=== PATIENT | female | born 1955 | race Caucasian/White ===

== ENCOUNTER → 2025-01-19 09:50 | Outpatient (BNVA) | payer MEDICARE, SELFPAY | PROVIDERS: PCP Student in an Organized Health Care Education/Training Program; Referring Provider Family Medicine; Visit Provider Surgery | DX: Z12.11 Encounter for screening for malignant neoplasm of colon (principal) | CPT/HCPCS: S0285 ==

== ENCOUNTER 2025-02-21 08:54 | Day surgery (SDC) | payer MEDICARE, SELFPAY ==
--- NOTE | 2025-02-20 14:51 | W.PREOPHP ---
Assessment and Plan Assessment and plan (1) Irregular bowel habits: Status: Acute Assessment and plan: We reviewed the plan for colonoscopy again today, and Angie had the chance to ask any new questions. We can proceed with colonoscopy as planned. History of Present Illness History of Present Illness Chief Complaint: diarrhea Narrative: Angie is referred for a colonoscopy. Evangelista is 69 years old, she has been in her usual state of health up to about 1-1/2 years ago. At that time, she noticed a progressive onset of loosening stools and diarrhea. This has been pretty consistent over the past year. She often times has somewhere between 4 and 6 bowel movements each day. Often times, she has fecal urgency. She denies any melena or hematochezia. Stools are quite watery, and she is able to decrease the frequency of them with Imodium from time to time. She has not noticed any particular food products that cause exacerbation of the symptoms. She denies any family history of colorectal cancers. Her last colonoscopy was in 2017, and is reported as normal. Past surgical history includes tubal ligation. Since her last visit, there have been no major changes with regards to the interval history. PFSH All Active Problems Irregular bowel habits (Acute) Snoring (Acute) Sensorineural hearing loss, unilateral, left ear, with unrestricted hearing on the contralateral side (Acute) Medical History Nasal septal perforation History of deviated nasal septum HSV infection Osteopenia Insomnia Seasonal allergies Numbness and tingling sensation of skin Tinnitus, bilateral Hematuria, microscopic Gout, unspecified Onychomycosis Polydipsia Herpes simplex with unspecified complication Surgical History History of discectomy L5-S1 microsurgical History of nasal septoplasty 2006 tubal ligation ovarian cyst resection lymph node resection Colonoscopy - [facility] (04/28/17) Family History (Updated 09/19/22 @ 10:49 by Melissa Hanley) Father Hypertension Mother Diabetes Hypertension Heart disease Dementia Sister Breast cancer Social History (Updated 09/19/22 @ 10:49 by Melissa Hanley) Smoking/Tobacco Use Status: Never Smoking risk assessment performed?: Yes Alcohol Intake: current Alcohol Intake frequency: a few times a week Alcohol type: hard liquor Drug use: Never Substance use type: does not use Housing: house Do you feel safe at home: Yes Do you feel safe in your relationship?: Yes Meds Allergies and Home Medications Allergies Allergy/AdvReac Type Severity Reaction Status Date / Time seasonal Allergy Unknown Unknown Uncoded 02/21/25 09:13 Home Medications ?Medication ?Instructions ?Recorded ?Confirmed ?Type cholecalciferol (vitamin D3) 50 50 mcg PO DAILY 09/19/22 02/21/25 History mcg (2,000 unit) capsule cyanocobalamin (vitamin B-12) 2,500 mcg PO DIRECTED 09/19/22 02/20/25 History 2,500 mcg tablet diphenhydramine HCl 25 mg tablet 25 mg PO QHS PRN allergy symptoms 09/19/22 02/21/25 History (Benadryl Allergy) loratadine 10 mg tablet (Claritin) 10 mg PO DAILY 09/19/22 02/21/25 History zolpidem 5 mg tablet (Ambien) 5 mg PO QHS PRN 09/19/22 02/21/25 History albuterol sulfate 90 mcg/actuation 2 puff inhalation Q6H PRN 11/17/24 02/21/25 History aerosol inhaler calcium carbonate 1,200 mg PO DAILY 11/17/24 02/20/25 History estradiol 0.01% (0.1 mg/gram) 1 g vaginal QWEEK 11/17/24 02/21/25 History vaginal cream ferrous sulfate 325 mg (65 mg 325 mg PO DAILY 02/20/25 02/20/25 History iron) tablet (Feosol) Exam Const General: cooperative, healthy appearing and not in acute distress Neck Neck: normal visual inspection, no lymphadenopathy and supple Resp Effort & Inspection: normal respiratory effort Auscultation: clear to auscultation bilaterally Cardio Jugular venous pressure: no JVD Rate: regular rate Rhythm: regular rhythm Heart Sounds: S1 normal and S2 normal GI Inspection: normal to inspection Palpation: soft, no guarding, no hernias and nontender Percussion: normal to percussion Auscultation: normal bowel sounds Neuro General: patient alert, patient awake and patient oriented x3 Psych Appearance: grossly normal
--- NOTE | 2025-02-20 14:53 | W.COLOREPORT ---
Date of service: 02/21/25 Time of Service: 11:53 Colonoscopy Report Date of procedure: 02/21/25 Pre-op diagnosis general: diarrhea Post-op diagnosis procedure note: other (Diverticulosis, colon polyps) Procedure: Colonoscopy with biopsies and polypectomy Surgeon: Gatito Barton Anesthesia Type: General:No Airway Estimated blood loss (mL): 10 Pathology: other (Nondirected biopsies to rule out collagenous colitis, 0.5 cm flat polyp at 80 cm, 0.25 cm flat polyp at 30 cm) Complications: None Disposition: same day Indications: Angie is a 69 year old woman who needs a diagnostic colonoscopy Prep: Miralax/Dulcolax Procedure Start Time: 11:21 Procedure End Time: 11:44 Retraction Time: 16 Findings: Normal-appearing colonic mucosa, occasional sigmoid diverticula, 0.25 cm flat polyp at 30 cm, 0.5 cm flat polyp at 80 cm Procedure Description: After the induction of anesthesia, and with the patient in left lateral decubitus position, I began by performing an external anorectal exam.? Perineum and skin were normal, as was the anal verge.? There was no evidence of external hemorrhoids.? Next, I performed a digital rectal exam.? I did not appreciate any abnormal findings.? Next, I advanced a colonoscope into the rectal vault.? I performed retroflexion.? This appeared normal. There is no evidence of any ulcerative colitis.? Using irrigation, I then advanced the colonoscope beyond the rectal folds and into the sigmoid colon before advancing towards the cecum.? The quality of the prep was excellent.? The scope was noted to be in the cecum by identification of the ileocecal valve and appendiceal orifice.? I then began withdrawing the colonoscope using repeated irrigation as necessary for full evaluation of the colonic mucosa. ?I did begin with some random biopsies along the ascending colon. These were performed with cold forceps in an effort to rule out collagenous colitis. Around 80 cm from the anal verge was a 0.5 cm mostly flat polyp. This was removed in piecemeal with cold forceps with minimal bleeding. I continued withdrawing the colonoscope, again taking some nondirected biopsies using cold forceps. Around 30 cm from the anal verge was another polyp. This was about 0.25 centimeters and flat. This was removed with cold forceps without issues. There is a little bit of narrow mouth diverticulosis within the sigmoid segment, although it is quite infrequent. Once the scope was withdrawn to the level of the rectum, great care was taken to examine portions of the rectal folds.? Finally, the scope was withdrawn and the patient was brought to the same-day surgery recovery unit as the anesthetic wore off. ?The findings and instructions were shared with the patient prior to discharge. Superior Bowel Prep Superior Bowel Prep Right Colon: 3 Left Colon: 3 Transverse Colon: 3 Total Score: 9
--- NOTE | 2025-02-20 14:54 | PDOC.DSDIS_ITS ---
Date of service: 02/21/25 Discharge Plan Disposition Patient Disposition: Home Condition: Good Discharge Details Reason For Visit: colonoscopy Attending Provider: Gatito Barton Primary Care Provider: Amaya Roach Home Meds and New Rx's Prescriptions: Continued cholecalciferol (vitamin D3) 50 mcg (2,000 unit) capsule 50 mcg PO DAILY zolpidem [Ambien] 5 mg tablet 5 mg PO QHS PRN Patient Comments: rarely using, and when uses it, takes half a tab cyanocobalamin (vitamin B-12) 2,500 mcg tablet 2,500 mcg PO DIRECTED loratadine [Claritin] 10 mg tablet 10 mg PO DAILY diphenhydramine HCl [Benadryl Allergy] 25 mg tablet 25 mg PO QHS PRN (Reason: allergy symptoms) calcium carbonate 600 mg calcium (1,500 mg) tablet 1,200 mg PO DAILY albuterol sulfate 90 mcg/actuation HFA aerosol inhaler 2 puff inhalation Q6H PRN estradiol 0.01 % (0.1 mg/gram) cream 1 g vaginal QWEEK ferrous sulfate [Feosol] 325 mg (65 mg iron) tablet 325 mg PO DAILY Discontinued bisacodyl [Dulcolax (bisacodyl)] 5 mg tablet,delayed release (DR/EC) 5 mg PO ONCE Qty: 4 0RF Rx Instructions: take per colonoscopy instructions polyethylene glycol 3350 17 gram/dose powder 238 g PO ONCE Qty: 238 0RF Rx Instructions: take per colonoscopy instructions Discharge Instructions Instructions: Colon polyps, Diverticulosis Additional Instructions: Angie was good seeing you today, and I hope you feel well after the procedure. Things went very smoothly. Your prep was excellent, and we could see everything fine. I do not see any signs of ulcerative colitis, Crohn's disease, or any other forms of active inflammatory bowel disease. In fact, ove rwhelming majority of the mucosa or lining of the colon looks totally normal. As we discussed beforehand, I did do some nondirected biopsies all along the length of your colon to see if that sheds any light on the change in your stools. Incidentally, I also found 2 polyps today. These were small, and I do not think they are anything at all to worry about. I removed these, and I will send them off to the pathologist for their review. Colon polyps come in different varieties, and we use the nature of the polyp to help guide the timing of future screening colonoscopies. If you need anything, or have any questions at all, please do not hesitate to ask, otherwise my office will be in touch once of the biopsy results are all available. 1. If tolerated, consume a soft, low fiber diet for 1-2 days. 2[address] Do not drive, drink alcohol, operate machinery, make critical decisions, or do activities that require coordination or balance for 24 hours. 3. Because air was put into your colon during the procedure, expelling air from your rectum (passing gas or farting) is normal. 4. You may not have a bowel movement for 1-3 days because of the colonoscopy prep. This is normal. 5. Go directly to the emergency room if you notice any of the following: Develop chills (warm to touch), or if you have a thermometer and your temperature is above 101 Difficulty breathing or difficultly swallowing Persistent vomiting Severe abdominal pain, other than gas cramps Severe chest pain Black, tarry stools Any bleeding ? exceeding one tablespoon 6. Call your physician if the site where your intravenous was started becomes red, swollen, painful, and warm to touch. 7. Your physician has reviewed your pre-procedure medications. Please continue to take those medications as previously ordered. You will be given specific information/education regarding any changes to your medications before leaving. Stand Alone Forms: Anesthesia Discharge InstAurea Quinn (DSU) Activity:: Activity as Tolerated Diet:: As Tolerated Discharge Orders Discharge Orders: Discharge Order (Routine); Ordered 02/20/25 Ordered By: Gatito Barton DS: Diagnosis Discharge Diagnosis (1) Irregular bowel habits: Status: Acute Asessment and Plan: Follow-up on biopsy results and polypectomy report
[2025-02-21 09:08] VITALS: BP 147/73; PULSE 63; RESP 16; TEMP 36.5; O2SAT 99
[2025-02-21] MEDS: Lactated Ringers 1,000 ML 80 ML IV (09:26)
--- NOTE | 2025-02-21 09:44 | W.ANESPRE ---
General Info Date of Service Date Performed: 02/21/25 Height: 5 ft 3 in Weight: 63.9 kg Body Mass Index (BMI): 24.9 Surgical Procedure: Operation Date: 02/21/25 10:20 Proposed Procedure Side Surgeon mary Barton MD Meds Allergies and Home Medications Allergies Allergy/AdvReac Type Severity Reaction Status Date / Time seasonal Allergy Unknown Unknown Uncoded 02/21/25 09:13 Home Medication ?Medication ?Instructions ?Recorded cholecalciferol (vitamin D3) 50 50 mcg PO DAILY 09/19/22 mcg (2,000 unit) capsule cyanocobalamin (vitamin B-12) 2,500 mcg PO DIRECTED 09/19/22 2,500 mcg tablet diphenhydramine HCl 25 mg tablet 25 mg PO QHS PRN allergy symptoms 09/19/22 (Benadryl Allergy) loratadine 10 mg tablet (Claritin) 10 mg PO DAILY 09/19/22 zolpidem 5 mg tablet (Ambien) 5 mg PO QHS PRN 09/19/22 albuterol sulfate 90 mcg/actuation 2 puff inhalation Q6H PRN 11/17/24 aerosol inhaler calcium carbonate 1,200 mg PO DAILY 11/17/24 estradiol 0.01% (0.1 mg/gram) 1 g vaginal QWEEK 11/17/24 vaginal cream ferrous sulfate 325 mg (65 mg 325 mg PO DAILY 02/20/25 iron) tablet (Feosol) Current Visit Medications: Current Medications Generic Name Dose Route Start Last Admin Trade Name Freq PRN Reason Stop Dose Admin Ringer's Solution 1,000 mls @ 80 mls/hr 02/21/25 06:00 02/21/25 09:26 IV 02/21/25 23:59 80 mls/hr INFUSION FABIAN Administration IV Miscellaneous Supplies 1 each 02/21/25 06:00 Iv Access IV 02/21/25 23:59 DIRECTED FABIAN Ondansetron HCl 4 mg 02/20/25 14:54 Ondansetron 4 Mg/2 Ml Vial IVP 03/22/25 14:53 Q4H PRN PRN Nausea / Vomiting Sodium Chloride 0 ml 02/21/25 06:00 Normal Saline Flush 10 Ml Syr IV 02/21/25 23:59 PRN PRN Sodium Chloride 0 ml 02/21/25 06:00 Normal Saline 10 Ml Vial IJ 02/21/25 23:59 DIRECTED PRN Sterile Water 0 ml 02/21/25 06:00 Water,Injection,Sterile 10 Ml Vial IJ 02/21/25 23:59 DIRECTED PRN PFS Active Problems Active Problems: Problem Status Onset Code Irregular bowel habits Acute R19.8 Snoring Acute R06.83 Sensorineural hearing loss, unilateral, left ear, with unrestricted hearing on the contralateral side Acute H90.42 Medical History Medical History Nasal septal perforation History of deviated nasal septum HSV infection Osteopenia Insomnia Seasonal allergies Numbness and tingling sensation of skin Tinnitus, bilateral Hematuria, microscopic Gout, unspecified Onychomycosis Polydipsia Herpes simplex with unspecified complication Surgical History Surgical History History of discectomy L5-S1 microsurgical History of nasal septoplasty 2006 tubal ligation ovarian cyst resection lymph node resection Colonoscopy - [facility] (04/28/17) Tobacco Smoking/Tobacco Use Status: Never Alcohol Alcohol Intake: current Alcohol intake frequency: a few times a week Alcohol type: hard liquor Substance Use Substance use: Never Substance use type: does not use Vital Signs and Lab Results Vital Signs Most Recent Vital Signs in EMR: Most Recent Vital Signs Temp Pulse Resp BP Pulse Ox 36.5 C 63 16 147/73 H 99 02/21/25 09:08 02/21/25 09:08 02/21/25 09:08 02/21/25 09:08 02/21/25 09:08 Anesthesia Assessment and Plan Anesthesia History Personal History: No History of Anesthesia Complications Family History: No Family History of Anesthesia Complications Exercise Tolerance Exercise Tolerance: Metabolic Equivalents>4 Pertinent Negatives Pertinent Negatives: No Symptoms of GERD Cardiac & Pulmonary Exam Cardiac Exam: Normal S1/S2 Heart Sounds Pulmonary Exam: Clear Bilateral Breath Sounds Implantable Cardiac Device Does patient have a Pacemaker or an ICD?: No Airway Exam Known Difficult Airway: No Mallampati Class: 2 Mouth Opening: Normal (> 3cm) Thyromental Distance: Greater than 3 cm Neck Range of Motion: Full ROM Neck Circumference: Normal Teeth Condition: Normal Dentition ASA Classification ASA Score: ASA 2 Emergency Case?: No NPO Status NPO Status: NPO Clears >2 hours, Solids >8 hours Anesthesia Plan Resuscitation Status: Full Code Anesthesia Technique: General Anesthesia Airway Planned: Natural Airway Monitors Used: Standard Monitors
[2025-02-21 09:54] VITALS: BMI 24.9
--- NOTE | 2025-02-21 10:02 | ANES.PREOP_ITS ---
General Info Date of Service Date Performed: 02/21/25 Height: 5 ft 3 in Weight: 63.9 kg Body Mass Index (BMI): 24.9 Surgical Procedure: Operation Date: 02/21/25 10:20 Proposed Procedure Side Surgeon mary Barton MD Meds Allergies and Home Medications Allergies Allergy/AdvReac Type Severity Reaction Status Date / Time seasonal Allergy Unknown Unknown Uncoded 02/21/25 09:13 Home Medication ?Medication ?Instructions ?Recorded cholecalciferol (vitamin D3) 50 50 mcg PO DAILY mcg (2,000 unit) capsule cyanocobalamin (vitamin B-12) 2,500 mcg PO DIRECTED 09/19/22 2,500 mcg tablet diphenhydramine HCl 25 mg tablet 25 mg PO QHS PRN miguel rgy symptoms 09/19/22 (Benadryl Allergy) loratadine 10 mg tablet (Claritin) 10 mg PO DAILY 08/28 11/16 zolpidem 5 mg tablet (Ambien) 5 mg PO QHS PRN 09/19/22 albuterol sulfate 90 mcg/actuation 2 puff inhalation Q 6H PRN 11/17/24 aerosol inhaler calcium carbonate 1,200 mg PO DAILY 11/17/24 estradiol 0.01% (0.1 mg/gram) 1 g vaginal QWEEK vaginal cream ferrous sulfate 325 mg (65 mg 325 mg PO DAILY 02/20/25 iron) tablet (Feosol) Current Visit Medications: Current Medications Generic Name Dose Route Start Last Admin Trade Name Freq PRN Reason Stop Dose Admin Ringer's Solution 1,000 mls @ 80 mls/hr 02/21/25 06:00 02/21/25 09:26 IV 02/21/25 23:59 80 mls/hr INFUSION FABIAN Administration IV Miscellaneous Supplies 1 each 02/21/25 06:00 Iv Access IV 02/21/25 23:59 DIRECTED FABIAN Ondansetron HCl 4 mg 02/20/25 14:54 Ondansetron 4 Mg/2 Ml Vial IVP 03/22/25 14:53 Q4H PRN PRN Nausea / Vomiting Sodium Chloride 0 ml 02/21/25 06:00 Normal Saline Flush 10 Ml Syr IV 02/21/25 23:59 PRN PRN Sodium Chloride 0 ml 02/21/25 06:00 Normal Saline 10 Ml Vial IJ 02/21/25 23:59 DIRECTED PRN Sterile Water 0 ml 02/21/25 06:00 Water,Injection,Sterile 10 Ml Vial IJ 02/21/25 23:59 DIRECTED PRN PFSH Active Problems Active Problems: Problem Status Onset Code Irregular bowel habits Acute R19.8 Snoring Acute R06.83 Sensorineural hearing loss, unilateral, left ear, with unrestricted hearing on the contralateral side Acute H90.42 Medical History Medical History Nasal septal perforation History of deviated nasal septum HSV infection Osteopenia Insomnia Seasonal allergies Numbness and tingling sensation of skin Tinnitus, bilateral Hematuria, microscopic Gout, unspecified Onychomycosis Polydipsia Herpes simplex with unspecified complication Surgical History Surgical History History of discectomy L5-S1 microsurgical History of nasal septoplasty 2006 tubal ligation ovarian cyst resection lymph node resection Colonoscopy - [facility] (04/28/17) Tobacco Smoking/Tobacco Use Status: Never Alcohol Alcohol Intake: current Alcohol intake frequency: a few times a week Alcohol type: hard liquor Substance Use Substance use: Never Substance use type: does not use Vital Signs and Lab Results Vital Signs Most Recent Vital Signs in EMR: Most Recent Vital Signs Temp Pulse Resp BP Pulse Ox 36.5 C 63 16 147/73 H 99 02/21/25 09:08 02/21/25 09:08 02/21/25 09:08 02/21/25 09:08 02/21/25 09:08 Anesthesia Assessment and Plan Anesthesia History Personal History: No History of Anesthesia Complications Family History: No Family History of Anesthesia Complications Exercise Tolerance Exercise Tolerance: Metabolic Equivalents>4 Pertinent Negatives Pertinent Negatives: No Symptoms of GERD Cardiac & Pulmonary Exam Cardiac Exam: Normal S1/S2 Heart Sounds Pulmonary Exam: Clear Bilateral Breath Sounds Implantable Cardiac Device Does patient have a Pacemaker or an ICD?: No Airway Exam Known Difficult Airway: No Mallampati Class: 2 Mouth Opening: Normal (> 3cm) Thyromental Distance: Greater than 3 cm Neck Range of Motion: Full ROM Neck Circumference: Normal Teeth Condition: Normal Dentition ASA Classification ASA Score: ASA 2 Emergency Case?: No NPO Status NPO Status: NPO Clears >2 hours, Solids >8 hours Anesthesia Plan Resuscitation Status: Full Code Anesthesia Technique: General Anesthesia Airway Planned: Natural Airway Monitors Used: Standard Monitors
[2025-02-21 10:03] VITALS: BMI 24.9
--- NOTE | 2025-02-21 11:30 | BOWEL_PTH ---
PATIENT: Angie Macias LOC: [facility] U#:[id number] AGE/SX: 69/F ROOM: RE02/21/[address]: Gtaito Barton MD : [id number] BED: DIS: 02/21/2025 SPEC #: [id number] RECD: 02/21/25 12:45 STATUS: DONA REQ #: [id number] BRYANT: 02/21/25 11:[address]: Gatito Barton DEPT: Surgical Specimen RECD BY: Shannan Ariza ENTERED: 02/21/25 12:46 SP TYPE: Bowel OTHR DR: Amaya Roach Tissues: 1 - BIOPSY BOWEL 2 - BIOPSY BOWEL 3 - BIOPSY BOWEL 4 - BIOPSY BOWEL Procedures: GROSS AND MICRO LEVEL 4 Comments: [id number]
[2025-02-21 11:50] VITALS: BP 114/65; PULSE 68; RESP 16; TEMP 36.1; O2SAT 98
--- NOTE | 2025-02-21 11:55 | W.ANESPOSTOP ---
Postoperative Evaluation Date, Time and Location Date Performed: 02/21/25 Time Performed: 11:55 Patient Location: Day Surgery Unit Vital Signs Most Recent Imported Vital Signs: Most Recent Vital Signs Temp Pulse Resp BP Pulse Ox 36.5 C 63 16 147/73 H 99 02/21/25 09:08 02/21/25 09:08 02/21/25 09:08 02/21/25 09:08 02/21/25 09:08 Pain Score Most Recent Pain Score: Most Recent Pain Score Pain Level 0 02/21/25 09:08 Assessment Mental Status: Awake (Alert & Oriented to Patient Baseline) Airway and Respiratory Function: Patent airway with normal (patient baseline) respiratory exam Cardiovascular Function: Hemodynamically Stable Hydration Status: Adequately Hydrated Nausea & Vomiting: No Nausea or Vomiting Pain: Pt. Denies Any Pain Peripheral Nerve Block: Patient did not receive a nerve block
[2025-02-21 12:21] VITALS: BP 133/70; PULSE 61; RESP 16; TEMP 36; O2SAT 98
== END 2025-02-21 12:43 | disposition home or self-care (01) ==
LOC: SUR 08:55
PROVIDERS: PCP Family Medicine; Visit Provider Surgery
PROC: 0DJD8ZZ Inspection of Lower Intestinal Tract, Via Natural or Artificial Opening Endoscopic (ICD-10-PCS; CPT 45378; principal; 2025-02-21 10:15)
DX: R19.7 Diarrhea, unspecified (principal); K57.30 Diverticulosis of large intestine without perforation or abscess without bleeding; D12.4 Benign neoplasm of descending colon
CPT/HCPCS: 45380; 88305; J2003; J2704